=== PATIENT | male | born 1990 | race Hispanic/Latino ===

== ENCOUNTER → 2023-11-11 06:37 | Outpatient (REF) | payer OTHER, SELFPAY ==
[2023-11-11 07:28] LABS: Hematocrit 45.7 % (39.0-52.0); Hemoglobin 15.8 g/dL (13.0-18.0); Mean Corp Hgb Conc. 34.6 g/dL (33.0-37.0); Mean Corpuscular Hgb 30.5 pg (27.0-31.0); Mean Corpuscular Volume 88.2 fL (80.0-94.0); Mean Platelet Volume 9.1 fL (7.4-10.4); Platelet Count 233 10^3/uL (130-400); Red Blood Cell Count 5.18 10^6/uL (4.70-6.10); Red Cell Dist. Width 11.9 % (11.5-14.5); White Blood Cell Count 5.4 10^3/uL (4.8-10.8)
[2023-11-11 07:58] LABS: ALT (SGPT) 30 U/L (0-50); AST (SGOT) 31 U/L (17-59); Albumin 4.5 g/dl (3.5-5.0); Alkaline Phosphatase 70 U/L (38-126); Blood Urea Nitrogen 18 mg/dl (9-20); Calcium 9.2 mg/dl (8.4-10.2); Carbon Dioxide 29 mmol/L (22-30); Chloride 99 mmol/L (98-107); Glucose 104 mg/dl (70-99); Potassium 4.1 mmol/L (3.5-5.1); Sodium 137 mmol/L (135-145); Total Bilirubin 0.4 mg/dl (0.2-1.3); Total Protein 7.3 g/dl (6.3-8.2); eGFR > 60.00
[2023-11-11 08:15] LABS: Free T4 0.91 ng/dl (0.78-2.19)
[2023-11-11 08:33] LABS: TSH 1.98 uIU/ml (0.47-4.68)
[2023-11-11 08:53] LABS: Glycohemoglobin (HgbA1c) 5.6 % (4.0-5.6)
== END ==
LOC: CLINIC 06:37
PROVIDERS: ATTENDING PHYSICIAN Nurse Practitioner Adult Health
DX: I10 Essential (primary) hypertension (principal); Z83.3 Family history of diabetes mellitus
CPT/HCPCS: 36415; 80053; 82088; 83036; 84244; 84439; 84443; 85027

== ENCOUNTER → 2024-01-08 06:51 | Outpatient (REF) | payer OTHER, SELFPAY ==
[2024-01-08 08:46] LABS: Blood Urea Nitrogen 25 mg/dl (9-20); Calcium 9.4 mg/dl (8.4-10.2); Carbon Dioxide 27 mmol/L (22-30); Chloride 103 mmol/L (98-107); Glucose 103 mg/dl (70-99); Potassium 4.9 mmol/L (3.5-5.1); Sodium 136 mmol/L (135-145); eGFR > 60.00
== END ==
LOC: REG 06:51
PROVIDERS: ATTENDING PHYSICIAN Nurse Practitioner Adult Health
DX: I10 Essential (primary) hypertension (principal)
CPT/HCPCS: 36415; 80048

== ENCOUNTER → 2024-02-20 08:09 | Outpatient (REF) | payer OTHER, SELFPAY ==
[2024-02-20 09:30] LABS: Blood Urea Nitrogen 33 mg/dl (9-20); Calcium 9.4 mg/dl (8.4-10.2); Carbon Dioxide 27 mmol/L (22-30); Chloride 98 mmol/L (98-107); Glucose 97 mg/dl (70-99); Potassium 4.8 mmol/L (3.5-5.1); Sodium 139 mmol/L (135-145); eGFR > 60.00
== END ==
LOC: CLINIC 08:09
PROVIDERS: ATTENDING PHYSICIAN Nurse Practitioner Adult Health
DX: I10 Essential (primary) hypertension (principal)
CPT/HCPCS: 36415; 80048

== ENCOUNTER → 2024-04-02 07:10 | Outpatient (REF) | payer OTHER, SELFPAY ==
[2024-04-02 08:44] LABS: Blood Urea Nitrogen 25 mg/dl (9-20); Calcium 9.6 mg/dl (8.4-10.2); Carbon Dioxide 25 mmol/L (22-30); Chloride 100 mmol/L (98-107); Glucose 99 mg/dl (70-99); Potassium 4.5 mmol/L (3.5-5.1); Sodium 138 mmol/L (135-145); eGFR > 60.00
== END ==
LOC: CLINIC 07:10
PROVIDERS: ATTENDING PHYSICIAN Nurse Practitioner Adult Health
DX: I10 Essential (primary) hypertension (principal)
CPT/HCPCS: 36415; 80048

== ENCOUNTER 2025-04-16 00:14 | Emergency (ER) | payer OTHER, SELFPAY ==
[2025-04-16 00:17] VITALS: BP 140/96
[2025-04-16 00:45] VITALS: BMI 29.8
--- NOTE | 2025-04-16 01:24 | ED.GENMED ---
History of Present Illness
General
Chief Complaint: Ear Problem
Source: patient
Time Seen by Provider: 04/16/25 01:13
History of Present Illness
History of Present Illness:
Note:
CHIEF COMPLAINT(S)
Left ear pain and diminished hearing.
HISTORY OF PRESENT ILLNESS
The patient is a 34-year-old male who presents with a complaint of left ear pain and decreased hearing, which began approximately three to four days ago. The patient reports initially noticing a violent sensation and pain inside the left ear while
preparing for work. Over the past day, the patient has experienced diminished hearing on the left side, although not complete hearing loss.
There is a sensation of something moving inside the ear, accompanied by itching. The patient denies complete hearing loss, but mentions diminished hearing ability. 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
ear symptoms.
PHYSICAL EXAM
General: Alert, no acute distress.
Skin: Warm, dry.
Head: Normocephalic, atraumatic.
Neck: Supple, trachea midline.
Eye Ears, nose, mouth and throat: Examination of the ear shows a slightly irritated external auditory canal with a little fluid behind the tympanic membrane on the left side. The tympanic membrane shows redness at the 9 oclock position. No foreign
bodies or significant wax buildup observed. Right ear appears normal.
Cardiovascular: Normal peripheral perfusion, no edema.
Respiratory: Respirations are non-labored.
Gastrointestinal: Abdomen nondistended.
Back: Normal range of motion, normal alignment.
Musculoskeletal: Normal range of motion, normal strength.
Neurological: Alert and oriented to person, place, time, and situation. No focal neurological deficit observed.
Psychiatric: Cooperative, appropriate mood and affect.
PLAN
- Initiate treatment with antibiotics due to the early signs of infection in the left ear.
- Provide a dose of antibiotics immediately and prescribe a week-long course to continue treatment at home.
DIFFERENTIAL DIAGNOSIS
The Differential Diagnosis includes, in no particular order and is not limited to:
1. Otitis media
2. Otitis externa
3. Eustachian tube dysfunction
4. Perforated tympanic membrane
5. Foreign body in ear canal
6. Cerumen impaction
7. Barotrauma-induced ear damage
8. Ear canal irritation from water or allergens
9. Early mastoiditis
10. Temporomandibular joint dysfunction affecting the ear
Disposition:
SUMMARY OF ENCOUNTER
The patient is a 34-year-old male presenting with left ear pain and diminished hearing, which started three to four days ago. Upon examination, there is no presence of foreign bodies or insects in the ear. The examination revealed retraction and
redness with middle ear effusion. The decision was made to initiate antibiotic treatment due to early signs of infection. The patients condition otherwise appears stable.
PLAN
Initiate a course of antibiotics for early signs of infection in the left ear. Refer to ENT if symptoms persist or worsen.
PATIENT EDUCATION AND COUNSELING
Advised the patient on the importance of completing the full course of prescribed antibiotics and monitoring symptoms. Instructed the patient on signs and symptoms that would warrant immediate follow-up, such as worsening ear pain, increased hearing
loss, or signs of fever.
FOLLOW-UP INSTRUCTIONS
Follow-up with ENT if symptoms persist or worsen despite antibiotic treatment.
MEDICATION RECONCILIATION
Prescribed an antibiotic course to treat the ear infection. Treated with Augmentin.
MEDICAL DECISION MAKING
-Complexity of Data Reviewed:
Differential Diagnosis includes:
1. Otitis media
2. Otitis externa
3. Eustachian tube dysfunction
4. Perforated tympanic membrane
5. Foreign body in ear canal
6. Cerumen impaction
7. Barotrauma-induced ear damage
8. Ear canal irritation from water or allergens
9. Early mastoiditis
10. Temporomandibular joint dysfunction affecting the ear
DIAGNOSIS
Otitis media, left ear - ICD-10 code H66.92
Phy Exam
Physical Exam
Physical Exam:
.
Course
Orders/Labs/Results
Orders:
Orders
04/16/25 01:24
Amoxicillin 875 mg/Clav 125 mg [Augmentin 875 mg/125 mg] 1 tablet PO NOW STA
Vital Signs
Initial and Last Documented VS:
Initial Vital Signs
Temp Resp BP Pulse Ox
98 F 20 140/96 100
04/16/25 00:17 04/16/25 00:17 04/16/25 00:17 04/16/25 00:17
Last Documented Vital Signs
Temp Pulse Resp BP Pulse Ox
98 F 70 18 135/98 98
04/16/25 00:17 04/16/25 01:33 04/16/25 01:33 04/16/25 01:33 04/16/25 01:33
*Pulse Oximetry
SaO2: 100
Oxygen Mode of Delivery: Room air
Patient hypoxic: no
*Critical Care Note
Total Time (30-74mins, 75-104mins- exclusive of procedures): Not Applicable
ED Attending Note
-
Portions of this chart may have been created with voice recognition software.� Occasional wrong word or��sound alike� substitutions may have occurred due to the inherent limitations of voice recognition software.
Discharge Plan
Departure
Patient Disposition: Home (Routine Discharge)
Date of Disposition: 04/16/25
Time of Disposition: 01:25
Patient with high blood pressure during this ER visit?: Yes
Discharge Problem:
Otitis media, Acute middle ear effusion
Instructions: Serous Otitis Media (DC), BLOOD PRESSURE
Prescriptions:
New
amoxicillin-pot clavulanate 875-125 mg tablet
1 tab PO BID Qty: 14 0RF
No Action
lisinopril 30 mg Tablet
30 mg PO DAILY
Referrals:
Stiefel,Yo A., MD [Active, ENT]
Activity Restrictions/Additional Instructions:
If symptoms persist over the next 2 weeks, please follow-up with ENT. Return immediately for fevers, worsening pain or any other concerns.
Interventions
Interventions:
*Risk Screen - Suicide Last Done: 04/16/25 00:17
*General Assessment Last Done: 04/16/25 00:46
*Neglect/Abuse Screening Last Done: 04/16/25 00:17
*ED- Fall Risk Assessment Last Done: 04/16/25 00:46
*ED COVID-19 Vaccine History Last Done: 04/16/25 00:46
*ED Influenza Vaccine History Last Done: 04/16/25 00:46
*Nursing Disposition Last Done: 04/16/25 01:41
Discharge Date and Time
Discharge Date/Time: 04/16/25 01:42
Print Language: ARABIC
[2025-04-16 01:33] VITALS: BP 135/98
[2025-04-16] MEDS: AUGMENTIN 875 MG/125 MG 1 TABLET PO (01:37)
== END 2025-04-16 01:42 | disposition home or self-care (01) ==
LOC: EMR 00:14
PROVIDERS: EMERGENCY PHYSICIAN Emergency Medicine
DX: H65.192 Other acute nonsuppurative otitis media, left ear (principal); R03.0 Elevated blood-pressure reading, without diagnosis of hypertension
CPT/HCPCS: 99283